=== PATIENT | male | born 1995 | race Caucasian/White ===

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

== ENCOUNTER 2023-12-19 23:02 | Emergency (ER) | payer BC, OTHER ==
[~2023-12-19] VITALS: Ht 177.8 cm; Wt 64.7 kg
[~2023-12-19 23:02] MED LIST: TRAM50TA2 PO; ZOFR4TAB16 PO
[2023-12-19 23:40] LABS: BASO % 0.6 % (0.0-1.0); EOS # 0.1 10^3/uL (0.0-0.5); EOS % 1.3 % (0.0-3.0); HEMATOCRIT 43.5 % (42.0-52.0); HEMOGLOBIN 14.6 g/dl (13.5-17.5); LYMPH # 3.8 10^3/uL (1.5-5.0); LYMPH % 54.5 % (24.0-44.0); MEAN CORPUSCULAR HEMOGLOBIN 29.3 pg (27.0-33.0); MEAN CORPUSCULAR HGB CONC 33.6 g/dl (32.0-36.5); MEAN CORPUSCULAR VOLUME 87.3 fl (80.0-96.0); MONO # 0.6 10^3/uL (0.0-0.8); MONO % 8.4 % (2.0-8.0); NEUTROPHILS # 2.4 10^3/uL (1.5-8.5); NEUTROPHILS % 34.9 % (36.0-66.0); PLATELET COUNT, AUTOMATED 238 10^3/uL (150-450); RED BLOOD COUNT 4.98 10^6/uL (4.30-6.10); WHITE BLOOD COUNT 6.9 10^3/uL (4.0-10.0)
[2023-12-19] MEDS: ACETAMINOPHEN 500 MG TAB PO ONE (23:57)
[2023-12-20 00:05] LABS: BLOOD UREA NITROGEN 12 MG/DL (9-23); CALCIUM LEVEL 9.1 MG/DL (8.5-10.1); CARBON DIOXIDE LEVEL 28 MMOL/L (20-31); CHLORIDE LEVEL 107 MMOL/L (98-107); CK-MB VALUE MASS < 1.0 NG/ML (<3.6); CREATININE FOR GFR 0.83 MG/DL (0.70-1.30); GLOMERULAR FILTRATION RATE > 60.0 (>60); GLUCOSE, FASTING 111 MG/DL (60-100); POTASSIUM SERUM 4.1 MMOL/L (3.5-5.1); SODIUM LEVEL 140 MMOL/L (136-145)
[2023-12-20 00:18] LABS: CPK CREATINE PHOSPHOKINASE 137 U/L (46-171); MB/CK RELATIVE INDEX 0.72 (< OR =4)
[2023-12-20 00:58] LABS: CK-MB VALUE MASS < 1.0 NG/ML (<3.6)
[2023-12-20 00:59] LABS: CPK CREATINE PHOSPHOKINASE 116 U/L (46-171); MB/CK RELATIVE INDEX 0.86 (< OR =4)
[2023-12-20] MEDS ORDERED: HOLTER MONITOR XX (02:22)
[2023-12-20 02:29] VITALS: BP 111/67; TEMP 96.9
[2023-12-20 02:30] VITALS: O2SAT 100
== END 2023-12-20 02:35 | disposition home or self-care (01) ==
LOC: M ED 23:02
DX: R55 Syncope and collapse (principal); R00.2 Palpitations; F41.0 Panic disorder [episodic paroxysmal anxiety]; F17.290 Nicotine dependence, other tobacco product, uncomplicated; Z88.8 Allergy status to other drugs, medicaments and biological substances; Z91.030 Bee allergy status

== ENCOUNTER → 2023-12-22 | Outpatient (CLI) | payer BC ==
[~2023-12-22] MED LIST changes: +HOLTER MONITOR XX
== END ==
LOC: M EKG 12:48
PROVIDERS: ATTEND Emergency Medicine
DX: R00.2 Palpitations (principal)

== ENCOUNTER → 2024-01-31 | Outpatient (REF) | payer BC ==
[2024-01-31 18:42] LABS: BASO % 0.5 % (0.0-1.0); EOS % 0.7 % (0.0-3.0); HEMOGLOBIN 14.8 g/dl (13.5-17.5); LYMPH # 1.5 10^3/uL (1.5-5.0); LYMPH % 36.5 % (24.0-44.0); MEAN CORPUSCULAR HEMOGLOBIN 28.8 pg (27.0-33.0); MEAN CORPUSCULAR HGB CONC 33.6 g/dl (32.0-36.5); MEAN CORPUSCULAR VOLUME 85.6 fl (80.0-96.0); MONO # 0.4 10^3/uL (0.0-0.8); MONO % 9.1 % (2.0-8.0); NEUTROPHILS # 2.2 10^3/uL (1.5-8.5); PLATELET COUNT, AUTOMATED 248 10^3/uL (150-450); RED BLOOD COUNT 5.14 10^6/uL (4.30-6.10); WHITE BLOOD COUNT 4.2 10^3/uL (4.0-10.0)
[2024-01-31 18:51] LABS: HEMOGLOBIN A1c 5.1 % (4.0-6.0)
[2024-01-31 19:10] LABS: TOTAL IRON BINDING CAPACITY 295 UG/DL (250-425)
[2024-01-31 19:11] LABS: ALBUMIN 4.4 G/DL (3.2-5.2); ALKALINE PHOSPHATASE 54 U/L (40-129); ALT/SGPT 16 U/L (7.0-40); AST/SGOT 14 U/L (<34); BILIRUBIN,TOTAL 0.9 MG/DL (0.3-1.2); BLOOD UREA NITROGEN 7 MG/DL (9-23); CARBON DIOXIDE LEVEL 28 MMOL/L (20-31); CHLORIDE LEVEL 104 MMOL/L (98-107); CREATININE FOR GFR 0.79 MG/DL (0.70-1.30); FOLATE 18.6 NG/ML (>5.4); GLOMERULAR FILTRATION RATE > 60.0 (>60); GLUCOSE, FASTING 87 MG/DL (60-100); IRON (FE) 92 UG/DL (65-175); PERCENT SATURATION 31.2 % (19.7-50.0); SODIUM LEVEL 138 MMOL/L (136-145); TOTAL 25(OH) VITAMIN D 11.9 NG/ML (20.0-100.0); TOTAL PROTEIN 7.7 G/DL (5.7-8.2); VITAMIN B12 LEVEL 610 PG/ML (211-911)
[2024-01-31 19:12] LABS: THYROID STIMULATING HORMONE 1.607 uIU/ML (0.55-4.78)
[2024-01-31 19:13] LABS: FERRITIN 70.1 NG/ML (10.5-307.3)
[2024-01-31 19:43] LABS: HIV 1&2 SCREEN NEGATIVE (NEGATIVE)
[2024-01-31 19:51] LABS: HEPATITIS C VIRUS ABY INDEX < 0.02 INDEX (<0.8)
== END ==
LOC: M LAB REF 17:28
PROVIDERS: ATTEND Physician Assistant
DX: R00.2 Palpitations (principal); E55.9 Vitamin D deficiency, unspecified; Z11.3 Encounter for screening for infections with a predominantly sexual mode of transmission

== ENCOUNTER → 2024-02-24 | Outpatient (CLI) | payer BC | LOC: M CARPUL 08:54 | PROVIDERS: ATTEND Physician Assistant | DX: R01.1 Cardiac murmur, unspecified (principal) ==

== ENCOUNTER → 2024-04-09 | Outpatient (CLI) | payer BC | LOC: M CARPUL 07:40 | PROVIDERS: ATTEND Physician Assistant | DX: R06.00 Dyspnea, unspecified (principal) ==

== ENCOUNTER → 2024-06-09 | Outpatient (CLI) | payer BC | LOC: M CARPUL 15:58 | PROVIDERS: ATTEND Physician Assistant | DX: R07.2 Precordial pain (principal); R06.02 Shortness of breath; R00.2 Palpitations ==